=== PATIENT | female | born 1950 | race Caucasian/White ===

== ENCOUNTER 2016-07-21 13:49 | Inpatient (IN) | payer OTHER, MEDICARE ==
[~2016-07-21] VITALS: Ht 165.1 cm; Wt 146.6 kg
[~2016-07-21 13:49] MED LIST: AMIODARONE HCL200 MG PO; AMLODIPINE BESY10 MG PO; ASPIR-LOW81 MG PO; ATORVASTATIN CA20 MG PO; METOPROLOL SUC100 MG PO; VALSARTAN-HCTZ1 EAC3 PO; XARELTO20 MG PO
[2016-07-21 14:42] LABS: EOSINOPHIL (%) 1.8 % (0-5); EOSINOPHIL COUNT 0.2 K/uL (0-0.3); HEMATOCRIT 37.5 % (36.0-46.0); IMMATURE GRANULOCYTE (%) 0.2 % (0.0-0.7); IMMATURE GRANULOCYTE COUNT 0.2 K/uL; LYMPHOCYTE COUNT 1.5 K/uL (1.0-2.8); MCH 33.2 PG (29.0-34.0); MCHC 34.7 G/DL (30.0-36.0); MCV 95.7 FL (83-99); MEAN PLAT.VOLUME 11.7 uM^3 (9.5-12.4); MONOCYTE COUNT 0.5 K/uL (0-0.8); NEUTROPHIL (%) 76.1 % (45-76); PLATELET COUNT 212 K/uL (156-360); RBC DIS.WIDTH-CV 12.6 % (11.8-14.6); RBC DIS.WIDTH-SD 42.9 % (39-53); RED BLOOD COUNT 3.92 M/uL (3.80-5.20); WHITE BLOOD COUNT 9.2 K/uL (4.1-10.2)
[2016-07-21 14:52] LABS: CHLORIDE 103 mEq/L (99-109); POTASSIUM 3.4 mEq/L (3.7-5.4); SODIUM 139 mEq/L (136-147)
[2016-07-21 14:53] LABS: INTER. NORMALIZED RATIO 1.3; PROTHROMBIN TIME 13.2 (9.2-11.2); PTT 27.2 (25-32)
[2016-07-21 14:54] LABS: GLUCOSE 212 mg/dL (70-99)
[2016-07-21 14:55] LABS: ANION GAP 12 MEQ/L (2-14)
[2016-07-21 14:58] LABS: GFR ESTIMATE (CALCULATED) 48 mL/min/
[2016-07-21 14:59] LABS: UREA NITROGEN (BUN) 18 mg/dL (9-23)
[2016-07-21] MEDS ORDERED: PERCOCET 5/31 TABLET PO (17:49)
[2016-07-22 01:45] VITALS: BP 108/61
[2016-07-22 06:59] LABS: HEMATOCRIT 34.9 % (36.0-46.0); MCH 33.3 PG (29.0-34.0); MCHC 34.4 G/DL (30.0-36.0); MCV 96.9 FL (83-99); MEAN PLAT.VOLUME 12.1 uM^3 (9.5-12.4); PLATELET COUNT 206 K/uL (156-360); RBC DIS.WIDTH-CV 13.1 % (11.8-14.6); RBC DIS.WIDTH-SD 45.9 % (39-53)
[2016-07-22 07:20] LABS: ALKALINE PHOSPHATASE 46 IU/L (3-129); ANION GAP 8 MEQ/L (2-14); CHLORIDE 102 MEQ/L (99-109); GFR ESTIMATE (CALCULATED) > 59 mL/min/; GLUCOSE 176 mg/dL (70-99); POTASSIUM 3.8 MEQ/L (3.7-5.4); SAMPLE HEMOLYSIS CHECK 0; SAMPLE ICTERIC CHECK 0; SAMPLE LIPEMIA CHECK 0; SODIUM 138 MEQ/L (136-147); TOTAL BILIRUBIN 1.3 MG/DL (0.0-1.0); UREA NITROGEN (BUN) 16 mg/dL (9-23)
[2016-07-22 08:22] LABS: POINT-OF-CARE METER ID UU13113807
[2016-07-22 08:36] VITALS: BP 122/64
[2016-07-22 11:47] LABS: POINT-OF-CARE METER ID UU13113807
[2016-07-22 11:50] VITALS: BP 109/59
[2016-07-22 17:15] LABS: POINT-OF-CARE METER ID UU13113807
[2016-07-22 18:00] VITALS: BP 113/62
[2016-07-22 20:40] VITALS: BP 109/58
[2016-07-22 21:50] LABS: POINT-OF-CARE METER ID UU13113807; POINT-OF-CARE USER ID 608261316
[2016-07-22 23:16] VITALS: BP 115/59
[2016-07-23 07:54] LABS: POINT-OF-CARE METER ID UU13113807
[2016-07-23 08:34] VITALS: BP 98/52
[2016-07-23 12:25] LABS: POINT-OF-CARE METER ID UU14149398
[2016-07-23 12:42] VITALS: BP 109/56
[2016-07-23] MEDS ORDERED: OXYCODONE-APAP1 EACH PO (14:14)
[2016-07-23] MEDS ORDERED: K-DUR10 MEQ PO (14:14)
[2016-07-23] MEDS ORDERED: PANTOPRAZOLE SO40 MG PO (14:15)
[2016-07-23] MEDS ORDERED: JANUMET 50/11 TABLET PO (14:15)
[2016-07-23] MEDS ORDERED: MORPHINE CON20 MG/M1 PO (14:28)
[2016-07-23 15:54] LABS: POINT-OF-CARE METER ID UU13113807
[2016-07-23 16:34] VITALS: BP 107/58
[2016-07-23 20:19] VITALS: BP 104/54
[2016-07-23 22:56] VITALS: BP 110/55
[2016-07-24 04:04] VITALS: BP 117/55
[2016-07-24 08:11] VITALS: BP 105/54
[2016-07-24 11:52] VITALS: BP 124/52
[2016-07-24 16:30] VITALS: BP 108/54
[2016-07-24 20:24] VITALS: BP 99/53
[2016-07-24 23:32] VITALS: BP 105/52
[2016-07-25 04:53] VITALS: BP 103/56
[2016-07-25 08:30] VITALS: BP 102/54
[2016-07-25 11:30] VITALS: BP 90/42
[2016-07-25 15:25] VITALS: BP 96/55
[2016-07-25 20:54] VITALS: BP 114/56
[2016-07-26] VITALS (7 sets, daily range): BP systolic 102–134; BP diastolic 52–65
[2016-07-26 06:09] LABS: HEMATOCRIT 32.6 % (36.0-46.0); MCH 32.2 PG (29.0-34.0); MCHC 32.5 G/DL (30.0-36.0); MCV 99.1 FL (83-99); MEAN PLAT.VOLUME 11.9 uM^3 (9.5-12.4); PLATELET COUNT 195 K/uL (156-360); RBC DIS.WIDTH-CV 13.1 % (11.8-14.6); RBC DIS.WIDTH-SD 47.2 % (39-53); RED BLOOD COUNT 3.29 M/uL (3.80-5.20); WHITE BLOOD COUNT 8.5 K/uL (4.1-10.2)
[2016-07-26 06:31] LABS: ALKALINE PHOSPHATASE 42 IU/L (3-129); ANION GAP 8 MEQ/L (2-14); CHLORIDE 103 MEQ/L (99-109); GFR ESTIMATE (CALCULATED) 59 mL/min/; GLUCOSE 150 mg/dL (70-99); POTASSIUM 4.3 MEQ/L (3.7-5.4); SAMPLE HEMOLYSIS CHECK 0; SAMPLE ICTERIC CHECK 0; SAMPLE LIPEMIA CHECK 0; SODIUM 133 MEQ/L (136-147); TOTAL BILIRUBIN 1.4 MG/DL (0.0-1.0)
[2016-07-26 06:32] LABS: UREA NITROGEN (BUN) 38 mg/dL (9-23)
[2016-07-27 05:42] LABS: HEMATOCRIT 31.2 % (36.0-46.0); MCH 33.7 PG (29.0-34.0); MCHC 33.3 G/DL (30.0-36.0); MEAN PLAT.VOLUME 12.1 uM^3 (9.5-12.4); PLATELET COUNT 193 K/uL (156-360); RBC DIS.WIDTH-CV 13.4 % (11.8-14.6); RBC DIS.WIDTH-SD 49.3 % (39-53); RED BLOOD COUNT 3.09 M/uL (3.80-5.20); WHITE BLOOD COUNT 7.5 K/uL (4.1-10.2)
[2016-07-27 05:54] LABS: INTER. NORMALIZED RATIO 1.1; PROTHROMBIN TIME 11.4 (9.2-11.2); PTT 30.3 (25-32)
[2016-07-27 06:20] LABS: ALKALINE PHOSPHATASE 45 IU/L (3-129); ANION GAP 9 MEQ/L (2-14); CHLORIDE 106 MEQ/L (99-109); GFR ESTIMATE (CALCULATED) 53 mL/min/; GLUCOSE 151 mg/dL (70-99); POTASSIUM 4.5 MEQ/L (3.7-5.4); SAMPLE HEMOLYSIS CHECK 0; SAMPLE ICTERIC CHECK 0; SAMPLE LIPEMIA CHECK 0; SODIUM 136 MEQ/L (136-147); TOTAL BILIRUBIN 1.2 MG/DL (0.0-1.0); UREA NITROGEN (BUN) 29 mg/dL (9-23)
[2016-07-27 08:16] VITALS: BP 137/63
[2016-07-27] MEDS ORDERED: JANUVIA25 M1 PO (12:55)
[2016-07-27] MEDS ORDERED: ONDANSETRON ODT4 MG PO (12:55)
[2016-07-27] MEDS ORDERED: DOCUSATE SODIU100 MG PO (12:55)
[2016-07-27] MEDS ORDERED: OXYCODONE HCL5 MG PO (12:55)
[2016-07-27] MEDS ORDERED: MORPHINE CON20 MG/M1 SL (12:55)
[2016-07-27] MEDS ORDERED: METFORMIN HCL500 MG PO (12:55)
[2016-07-27 17:30] VITALS: BP 192/100
== END 2016-07-27 20:51 | DRG 563 ==
LOC: EME → EDBD 13:49 → 4SOUTH 22:50 → EDOF 22:50 → 4SOUTH 07-22 01:25 → 3EAST 07-23 19:46
PROVIDERS: Emergency Medicine; Internal Medicine
DX: S42.342A Displaced spiral fracture of shaft of humerus, left arm, initial encounter for closed fracture (principal); Z68.43 Body mass index [BMI] 50.0-59.9, adult; G89.11 Acute pain due to trauma; M25.512 Pain in left shoulder; I48.2 Chronic atrial fibrillation; E11.9 Type 2 diabetes mellitus without complications; I11.9 Hypertensive heart disease without heart failure; E78.5 Hyperlipidemia, unspecified; G47.30 Sleep apnea, unspecified; M19.90 Unspecified osteoarthritis, unspecified site; E66.01 Morbid (severe) obesity due to excess calories; W01.190A Fall on same level from slipping, tripping and stumbling with subsequent striking against furniture, initial encounter; Y92.013 Bedroom of single-family (private) house as the place of occurrence of the external cause; Z79.01 Long term (current) use of anticoagulants; Z75.1 Person awaiting admission to adequate facility elsewhere
CPT/HCPCS: 70450; 71010; 72125; 73030; 73060; 73200; 80048; 80053; 82948; 85025; 85027; 85610; 85730; 93005; 94799; 97530 GP; 99281; 99285; G0008; G0378; G8987 GO CN; G8988 GO CK; J1650; J2270; J2405; J3010; J7030

== ENCOUNTER 2018-01-12 08:35 | Day surgery (SDC) | payer OTHER, MEDICARE ==
[~2018-01-12] VITALS: Ht 166.4 cm; Wt 140.6 kg
[~2018-01-12 08:35] MED LIST changes: -ATORVASTATIN CA20 MG PO; +ATORVASTATIN CA40 MG PO; +CLARITIN,ALAVAR10 MG PO; +DOCUSATE SODIU100 MG PO; +FLONASE16 G1 BOTH NARES; +JANUMET 50/11 TABLET PO; +JANUVIA25 M1 PO; +K-DUR10 MEQ PO; +METFORMIN HCL500 MG PO; +MORPHINE CON20 MG/M1 PO; +MORPHINE CON20 MG/M1 SL; +ONDANSETRON ODT4 MG PO; +OXYCODONE HCL5 MG PO; +OXYCODONE-APAP1 EACH PO; +PANTOPRAZOLE SO40 MG PO; +PERCOCET 5/31 TABLET PO
== END 2018-01-12 13:42 | disposition home or self-care (01) ==
LOC: CATH 08:35
PROVIDERS: Internal Medicine Cardiovascular Disease
DX: R94.39 Abnormal result of other cardiovascular function study (principal); I08.1 Rheumatic disorders of both mitral and tricuspid valves; I48.0 Paroxysmal atrial fibrillation; G47.33 Obstructive sleep apnea (adult) (pediatric); E66.01 Morbid (severe) obesity due to excess calories; Z68.43 Body mass index [BMI] 50.0-59.9, adult; I10 Essential (primary) hypertension; E78.5 Hyperlipidemia, unspecified; Z79.01 Long term (current) use of anticoagulants
CPT/HCPCS: 82948; 93005; C1769; C1887; J1644; J2250; J3010